=== PATIENT | male | born 1945 | race Caucasian/White ===

== ENCOUNTER 2021-12-20 13:04 | Outpatient (AMB) | payer MEDICARE, SELFPAY ==
[2021-12-20 13:10] VITALS: BP 178/97; PULSE 100; TEMP 36.4; BMI 31.8
--- NOTE | 2021-12-20 13:10 | URONOTE_ITS ---
Intake Vital Signs 12/20/21 13:10 Height 1.75 m Height Method Stated Weight 97.976 kg Weight Measurement Method Standing Scale BMI 31.8 Temp 97.5 F Temp Source Temporal Artery Scan Pulse 100 Pulse Source Monitor BP 178/97 H Blood Pressure Source Automatic Cuff Blood Pressure Location Left Upper Arm Position Sitting Intake Visit Reasons: Uro Office Visit [facility] FU Re[employer] Superintendent Required: No Is patient in pain?: No Allergy Allergies No Known Allergies Allergy (Verified 12/20/21 13:11) Home Meds Medication Reconciliation hydrocodone 5 mg-acetaminophen 325 mg tablet ([place]) 1 tab PO TID PRN #0 tab [History Confirmed 12/20/21] metformin 1,000 mg tablet (Glucophage) 1,000 mg PO BID #0 tab 09/02/17 [History Confirmed 12/20/21] albuterol sulfate 90 mcg/actuation aerosol inhaler 1 inh INHALATION Q6H PRN 11/29/20 [History Confirmed 12/20/21] alprazolam 0.5 mg tablet 0.5 mg PO Q6H PRN 11/29/20 [History Confirmed 12/20/21] amlodipine 10 mg tablet 10 mg PO QDAY 11/29/20 [History Confirmed 12/20/21] aripiprazole 2 mg tablet (Abilify) 2 mg PO QDAY 11/29/20 [History Confirmed 12/20/21] cetirizine 10 mg tablet 10 mg PO QDAY 11/29/20 [History Confirmed 12/20/21] citalopram 40 mg tablet 40 mg PO QDAY 11/29/20 [History Confirmed 12/20/21] clopidogrel 75 mg tablet (Plavix) 75 mg PO QDAY 11/29/20 [History Confirmed 12/20/21] finasteride 5 mg tablet 5 mg PO QDAY 11/29/20 [History Confirmed 12/20/21] gabapentin 600 mg tablet 600 mg PO TID 11/29/20 [History Confirmed 12/20/21] ibuprofen 600 mg tablet 600 mg PO TID PRN 11/29/20 [History Confirmed 12/20/21] lisinopril 20 mg tablet 20 mg PO QDAY 11/29/20 [History Confirmed 12/20/21] tizanidine 4 mg tablet 4 mg PO BID 11/29/20 [History Confirmed 12/20/21] dexamethasone 4 mg tablet 6 mg PO QDAY #6 tab 12/01/20 [Rx Confirmed 12/20/21] nitrofurantoin monohydrate/macrocrystals 100 mg capsule (Macrobid) 100 mg PO BID 12/20/21 [History Confirmed 12/20/21] tamsulosin 0.4 mg capsule (Flomax) 0.8 mg PO QHS #0 cap 12/20/21 [History Confirmed 12/20/21] Nurse Note: Patient's urine sent for culture. Patient to be scheduled for kidney ultrasound. Patient to follow up in 2 weeks. mvp Fall Screening Do you have a fear of falling?: No Have you had a fall in the last 2 months?: No Do you use an assistive device for ambulation?: Yes (cane) Current Vital Signs Height Height Method Weight Weight Measurement Method Body Mass Index Temperature Temperature Source 1.75 m Stated 97.976 kg Standing Scale 31.8 97.5 F Temporal Artery Scan 12/20/21 13:10 12/20/21 13:10 12/20/21 13:10 12/20/21 13:10 12/20/21 13:10 12/20/21 13:10 12/20/21 13:10 Pulse Rate Pulse Source Blood Pressure Blood Pressure Source Blood Pressure Location Blood Pressure Position 100 Monitor 178/97 H Automatic Cuff Left Upper Arm Sitting 12/20/21 13:10 12/20/21 13:10 12/20/21 13:10 12/20/21 13:10 12/20/21 13:10 12/20/21 13:10 Nursing Documentation Social History Living Situation History Lives With: Children and Spouse Housing: House Tobacco History Smoking Status: Never smoker Alcohol History Alcohol Intake: Never Office Procedures Uro Level of Care Nursing/Assessment/Reassessment Patient Status: Established Patient Nursing Assessment/Reassessment: Update [facility] data in EMR, Vital Signs and Medication Reconciliation Coordination of Care: Simp Pt/Fam Ed for care and Ref for ancillary service Established Patient Point Assignment: 65 Established Patient Point Charge: EP Level 2 (40-75) Procedure IM Injection: Yes Transrectal Ultrasound: No Medication Given Medication Given Medication Given: Yes Documented Dose Given: 2.1 Route: IM Office Meds ceftriaxone Performing Provider: Viridiana Weir MD Administered by: Елена Vigil RN on 12/20/21 13:57 Dose Route Admin Location Lot Number Expiration Date NDC Air Brake Adjuster 1 g IM right ventrolguteal Xylocaine Performing Provider: Viridiana Weir MD Administered by: Елена Vigil RN on 12/20/21 13:57 Dose Route Admin Location Lot Number Expiration Date NDC Air Brake Adjuster 10 mg subcut [facility] Office Visit Office Visit Date of visit:: December 20, 2021 13:04 Allergies & Home Medications: Allergies No Known Allergies Allergy (Verified 05/08/21 15:55) Visit: Reason for visit: [] Office Visit findings: []
[2021-12-20 13:17] LABS: Bilirubin,Urine Clinitek 2+ (Negative); Blood,Urine Clinitek Trace-intact (Negative); Glucose, Urine Clinitek 2+ (Negative); Ketones,Urine Clinitek 1+ (Negative); Leukocyte Esterase,Urine Clin 3+ (Negative); Nitrite,Urine Clinitek Positive (Negative); Protein,Urine Clinitek 3+ (Neg - Trace); Specific Gravity,Urine Clin <= 1.005 (1.001-1.030); Urobilinogen,Urine Clinitek >= 8.0 mg/dL (0.0-1.0)
--- NOTE | 2021-12-21 15:39 | ESPR_ITS ---
RE: VALERIY FRANKLIN : 1945 DATE OF SERVICE: 12/20/2021 This is same day appointment for this patient in Urology office. This patient is status post placement of prostatic urethral lift. HISTORY OF PRESENT ILLNESS: This is a 76-year-old gentleman, one week ago, he had placement of prostatic urethral lift. He has frequency, urgency, and dysuria, no fever or chills. He had gross hematuria. I called him to the office and see me. GENERAL: Condition is satisfactory. VITAL SIGNS: Stable. HEENT: Normocephalic, atraumatic. Eyes: No anemia or jaundice. NECK: Supple. Trachea is central. Thyroid is not enlarged. EXTREMITIES: Revealed no edema, cyanosis, or clubbing. I did his bladder scan. His residual urine is 140 mL. The patient is not in retention at this time. He was on tamsulosin 0.4 mg p.o. daily, which he had stopped. RECOMMENDATIONS: My recommendation to him : 1. Urine for culture and sensitivity. 2. I gave him injection Rocephin 1 g IM. 3. I recommended he goes back on tamsulosin 0.8 mg p.o. daily. 4. I have put him on Macrobid 100 mg p.o. b.i.d., stop if he develops chronic cough and followup appointment after Urology office is given. DT: 16:52:32 TT: 19:39:00 Ref: [id number] - TID: [id number] MTDD
== END 2021-12-20 13:50 | disposition home or self-care (01) ==
LOC: HODURO 13:04
PROVIDERS: PCP Nurse Practitioner Family; Referring Provider Nurse Practitioner Family; Visit Provider Urology